=== PATIENT | male | born 1960 | race Two or more races ===

== ENCOUNTER 2024-06-09 22:28 | Emergency (ER) | payer MEDICAID, SELFPAY ==
[2024-06-09 23:38] VITALS: BP 147/81; PULSE 70; RESP 20; TEMP 36.9; O2SAT 96; BMI 28.6
--- NOTE | 2024-06-10 00:20 | EDNOTE_ITS ---
ED Extremity Problem RME/HPI General Chief complaint: Extremity Problem,Nontraumatic Stated complaint: BILAT SHOULDER PAIN X 3 DAY Time Seen by Provider: 06/10/24 00:16 Arrival date/time: 06/09/24 22:28 63M with no significant PMH presents to ED with 3 days of bilateral shoulder pain w/o fall/trauma. Patient also denies CP, SOB, back pain, dizziness and weakness. Limitations: no limitations Related Data Allergies Allergy/AdvReac Type Severity Reaction Status Date / Time No Known Allergies Allergy Verified 06/09/24 22:31 Review of Systems Review of Systems Systems Reviewed: All systems reviewed, normal except as documented Constitutional Constitutional: Reports system reviewed and no additional complaints, except as documented, Denies fever(s) and Denies headache(s) ENT Ears, Nose, Mouth, and Throat: Denies disequilibrium and Denies headache(s) Cardiovascular Cardiovascular: Reports system reviewed and no additional complaints, except as documented, Denies chest pain and Denies dyspnea Respiratory Respiratory: Reports system reviewed and no additional complaints, except as documented, Denies cough and Denies dyspnea Gastrointestinal Gastrointestinal: Reports system reviewed and no additional complaints, except as documented, Denies abdominal pain, Denies nausea and Denies vomiting Musculoskeletal Musculoskeletal: Reports as per HPI and Reports arthralgias Neurologic Neurologic: Reports system reviewed and no additional complaints, except as documented, Denies confusion, Denies disequilibrium and Denies headache(s) Psychiatric Psychiatric: Denies confusion Past Medical History Social History SMOKING STATUS: Never smoker ED Exam General Limitations: Present no limitations General appearance: Present alert and in no apparent distress Head Head exam: Present atraumatic Eye Eye exam: Present normal appearance, PERRL and EOMI ENT ENT exam: Present normal exam, normal oropharynx and mucous membranes moist Neck Neck exam: Present normal inspection, full ROM and trachea midline Chest Chest inspection: Present normal inspection and symmetric chest wall rise Respiratory Respiratory exam: Present normal lung sounds bilaterally Cardiovascular Cardiovascular exam: Present regular rate, normal rhythm and normal heart sounds Abdominal Exam Abdominal exam: Present soft and normal bowel sounds Extremities Exam Extremities exam: Present normal inspection and full ROM Back Exam Back exam: Present normal inspection and full ROM Neurological Exam Neurological exam: Present alert, oriented X3 and CN II-XII intact Psychiatric Psychiatric exam: Present normal affect and normal mood Skin Skin exam: Present warm, dry, intact and normal color Course Quality Measures none Orders Category Date Time Status EKG (ED ONLY) *Do not use* NOW Care 06/10/24 00:17 Completed EKG (ED Only) Stat Exams 06/10/24 00:17 Ordered Ketorolac Inj [Toradol Inj] Med 06/10/24 00:17 Discontinued 60 mg IM X1 ONE Vital Signs Vital signs: Vital Signs Temperature 98.5 F 06/09/24 23:38 Pulse Rate 70 06/09/24 23:38 Respiratory Rate 20 06/09/24 23:38 Blood Pressure 147/81 H 06/09/24 23:38 Pulse Oximetry (%) 96 06/09/24 23:38 Oxygen Delivery Method Room Air 06/09/24 23:38 O2 at 96% on RA and WNLs Extremity Problem MDM Narrative MDM Narrative:: 63M with no significant PMH presents to ED with 3 days of bilateral shoulder pain w/o fall/trauma. Patient also denies CP, SOB, back pain, dizziness and weakness. Physical exam reveals clear lungs. RRR. No shoulder tenderness. Pain is with ROM, which is intact. EKG is NSR. Meds and intellectual property counsel given. Patient data External records reviewed:: None Clinical information provided by:: patient Social determinants that could affect healthcare access:: none Patient has the following chronic illnesses:: none How is presenting disease/condition affected by chronic disease/condition?: no chronic disease Evaluation data The following diagnostics were reviewed and interpreted by me:: EKG tracing(s) Lab and/or radiology exams considered but not ordered:: ordered Interpretation Summary: above Medications / Prescriptions Medications or Prescriptions considered but not ordered:: ordered Medication administrations:: Medication Administration History Discontinued Medications Ketorolac Tromethamine (Ketorolac Inj 60 Mg/2 Ml Vial) 60 mg IM X1 ONE Stop: 06/10/24 00:18 Last Admin: 06/10/24 00:41 Dose: 60 mg Documented By: DB above Consultations Consultation(s) initiated? (list below): No Diagnosis Extremity Problem Differential Diagnosis: herpes zoster, gout, cellulitis, superficial thrombophlebitis, deep venous thrombosis of upper extremity, lower extremity edema, deep vein thrombosis of lower extremity and other (shoulder pain, ACS, aortic dissection) Most likely diagnosis given after review of the tests above:: shoulder pain Admission Indicated Admission indicated?: not indicated Admission Request Was there a request for admission?: No Disposition Plan Disposition Plan: Discharge Discharge Attestation Discharge Attestation: The patient and all family members were given an opportunity to ask questions and understood the discharge instructions. Discharge instructions specifically effects, indications for sooner follow up or return to the emergency department, and the expected course of current diagnosis. Patient condition: Stable Discharge Plan Plan Patient Disposition: HOME (Self Care) Disposition Comment: Stable Problem List Clinical Impression: Shoulder pain Patient/Caregiver Discharge Instructions Education Materials: ED Shoulder Pain, Uncertain Cause Additional Instructions: Please follow-up with PCP within 24-48 hours and return immediately if symptoms worsen. If problem persists, recommend outpatient PT and/or MRI follow-up. In the meantime, rest, use ice/heat, and/or compression. Print Language: Latvian Stand Alone Forms: Patient Portal Info Letter TAMMY/AURELIANO Supervising Physician TAMMY/AURELIANO Supervising Physician: Dr. Queen
[2024-06-10] MEDS: KETOROLAC INJ 60 MG/2 ML VIAL IM (00:41)
== END 2024-06-10 00:44 | disposition home or self-care (01) ==
LOC: SERX 06-10 01:01
PROVIDERS: Emergency Provider Emergency Medicine
DX: M25.512 Pain in left shoulder (principal); M25.511 Pain in right shoulder
CPT/HCPCS: 96372; 99283; J1885